=== PATIENT | male | born 1965 | race Caucasian/White ===

== ENCOUNTER 2017-04-09 09:22 | Emergency (ER) | payer BC ==
[~2017-04-09 09:22] MED LIST: ALPRAZOLAM PO; ASPIRIN PO; BENADRYL PO; CELEXA PO; FAMOTIDINE PO; GLUCOPHAGE XR500 MG PO; HCTZ PO; INDOMETHACIN PO; INDOMETHACIN75 MG PO; JANUMET; LIPITOR PO; LOPRESSOR PO; LORTAB 7.5-5001 TAB PO; MEDROL PO; METFORMIN PO; NORVASC10 MG PO; NOVOLOG100 U/ML SUBQ; PAXIL CR PO; PLAVIX PO; PROTONIX PO; ULORIC PO; WELCHOL625 MG PO; ZANTAC PO
[2017-04-18] MEDS ORDERED: METOPROLOL SUC200 MG PO (15:14)
[2017-04-18] MEDS ORDERED: AMLODIPINE BESY10 MG PO (15:14)
[2017-04-18] MEDS ORDERED: JANUMET 50-1,01 EACH (15:15)
[2017-04-18] MEDS ORDERED: CELEXA20 MG PO (15:16)
[2017-04-18] MEDS ORDERED: HEARTBURN RELI150 M1 PO (15:16)
[2017-04-18] MEDS ORDERED: LIPITOR20 MG PO (15:17)
[2017-04-18] MEDS ORDERED: ISOSORBIDE MONO60 M1 PO (15:19)
[2017-04-18] MEDS ORDERED: COATED ASPIRIN325 M1 PO (15:22)
== END 2017-04-09 11:24 | disposition home or self-care (01) ==
LOC: CED 09:22
DX: H66.93 Otitis media, unspecified, bilateral (principal); R42 Dizziness and giddiness; E78.5 Hyperlipidemia, unspecified; I10 Essential (primary) hypertension; Z88.0 Allergy status to penicillin; Z91.040 Latex allergy status; Z88.8 Allergy status to other drugs, medicaments and biological substances
CPT/HCPCS: 99284

== ENCOUNTER → 2017-04-24 | Day surgery (SDC) | payer BC ==
[~2017-04-24] MED LIST changes: +AMLODIPINE BESY10 MG PO; +CELEXA20 MG PO; +COATED ASPIRIN325 M1 PO; +HEARTBURN RELI150 M1 PO; +ISOSORBIDE MONO60 M1 PO; +JANUMET 50-1,01 EACH; +LIPITOR20 MG PO; +METOPROLOL SUC200 MG PO
--- NOTE | ~2017-04-24 | OR ---
Unit #: [id number] #: [id number] Patient: KIKA ROLDAN [id number] [address] [place], [place] [address] [id number] MR#: [id number] NAME: KIKA ROLDAN ROOM: Date of Procedure: 04/24/2017 Admission Date: 04/24/2017 Surgeon: Waqar Moore M.D. : 1965 Attending Physician: Waqar Moore M.D. Primary Care Physician: Carl Howell M.D. OPERATIVE REPORT PRIMARY CARE PHYSICIAN Carl Howell M.D. PREOPERATIVE DIAGNOSIS Colorectal cancer screening in an average-risk patient. PROCEDURE PERFORMED Colonoscopy up to cecum with excellent preparation and good visualization. POSTOPERATIVE DIAGNOSES Completely normal examination up to cecum. The quality of the prep was excellent. The patient did not have any polyps nor any diverticula or hemorrhoids. RECOMMENDATIONS Repeat colonoscopy in 10 years. SEDATION USED MAC. DESCRIPTION OF PROCEDURE Following detailed explanation of the potential risks and complications of a colonoscopy, namely perforation, bleeding, and complications related to sedation, the patient was brought to GI lab and laid in the left lateral decubitus position. A digital rectal examination was performed, which was normal. Lubricated tip of the Olympus video colonoscope was inserted through the anus and advanced under direct vision. The scope was advanced and passed up to sigmoid into descending colon. No diverticula were noted in this area. The scope tip was then navigated all the way up to cecum with visualization of ileocecal valve and the appendiceal orifice. Preparation was excellent with good visualization and photodocumentation was obtained. Last several inches of the terminal ileum also visualized after intubation of the ileocecal valve and appeared normal. Successive segments of the colonic mucosa were examined upon withdrawal and appeared unremarkable. There being no polyps, mass lesions, AVMs, or diverticula. The patient did not have any hemorrhoids at anal verge. The scope was then withdrawn. The patient returned to the recovery area. He tolerated the procedure without any postprocedure complications. Dictated by... Waqar Moore M.D. Unit #: [id number] #: [id number] Patient: KIKA ROLDAN NESTOR/ovi TD: 04/24/2017 11:55 JOB #: [id number] OPERATIVE REPORT Page 1 of 1 X Waqar Moore MD PROCEDURE OPERATIVE NOTE
== END | disposition home or self-care (01) ==
LOC: COPS 08:30
DX: Z12.11 Encounter for screening for malignant neoplasm of colon (principal); I25.10 Atherosclerotic heart disease of native coronary artery without angina pectoris; K21.9 Gastro-esophageal reflux disease without esophagitis; E11.9 Type 2 diabetes mellitus without complications; Z86.73 Personal history of transient ischemic attack (TIA), and cerebral infarction without residual deficits; Z88.8 Allergy status to other drugs, medicaments and biological substances; Z79.82 Long term (current) use of aspirin; Z79.899 Other long term (current) drug therapy; Z91.040 Latex allergy status; Z95.5 Presence of coronary angioplasty implant and graft
CPT/HCPCS: 82947; J2250

== ENCOUNTER 2017-06-04 16:39 | Emergency (ER) | payer BC ==
--- NOTE | ~2017-06-04 | EKG ---
PATIENT: KIKA ROLDAN UNIT #: [id number] Ventricular Rate: 121 BPM Atrial Rate: 92 BPM QRS Duration: 76 ms Q-T Interval: 310 ms QTC Calculation(Bezet): 440 ms Calculated R [place]: 30 degrees Calculated T [place]: 23 degrees Diagnosis Line: Atrial fibrillation with rapid ventricular Diagnosis Line: response Diagnosis Line: Nonspecific ST abnormality , probably digitalis Diagnosis Line: effect Diagnosis Line: Abnormal ECG Diagnosis Line: When compared with ECG of 01-JUN-2010 09:08, Diagnosis Line: Atrial fibrillation has replaced Sinus rhythm Diagnosis Line: Non-specific change in ST segment in Inferior Diagnosis Line: leads Diagnosis Line: ST now depressed in Lateral leads Diagnosis Line: Confirmed by MEENAKSHI SUAREZ MD ([id number]) on Diagnosis Line: 06/07/2017 10:41:24 AM INTERPRETING MD: DANIELA BARTON
--- NOTE | ~2017-06-04 | CR72 ---
[facility]. [facility] A Service of [facility] RADIOLOGY TEXT RESULTS PATIENT: KIKA ROLDAN LOCATION: SED : [birth year] UNIT #: [id number] AGE: [address]: Joe Wick MD SEX: M ORDER DR: [id number] [place] [id number] E MR#: [id number] Acc #: [id number] NAME: KIKA ROLDAN : 1965 SEX: M STUDY DATE/TIME: 06/04/2017 16:55 UNIT: SED ROOM: STUDY DESCRIPTION: CR Chest Single View Portable Attending Physician: Joe Wick M.D. Ordering Physician: Joe Wick M.D. Primary Care Physician: Carl Howell M.D. MEDICAL IMAGING REPORT This report is preliminary unless electronic signature is present. EXAM Portable chest 06/04/2017 HISTORY Shortness of breath and racing heart beat. Patient feels about to pass out. Symptoms for 2 hours today. Benign essential hypertension. Smoking history. FINDINGS The heart is top normal in size. Lungs are clear. There are no pleural effusions. IMPRESSION No active pulmonary disease. Dictated by... John Guerrero M.D. THIS IS AN ELECTRONICALLY VERIFIED REPORT John Guerrero M.D. at 06/05/2017 7:25 AM MADDIE/akin TD: 06/05/2017 06:30 JOB #: [id number] MEDICAL IMAGING REPORT Page 1 of 1
[2017-06-04 17:08] LABS: BASOPHIL# 0.1 X10e3 (0-0.3); EOSINOPHIL# 0.2 X10e3 (0-0.7); EOSINOPHIL% 2.5 % (0.0-7.0); HEMATOCRIT 42.8 % (38.0-50.0); HEMOGLOBIN 15.1 gm/dL (13.0-16.0); LYMPHOCYTE# 2.1 X10e3 (1.0-3.5); LYMPHOCYTE% 31.3 % (17.0-45.0); MEAN CELL VOLUME 82.1 FL (83-96); MEAN CORPUSCULAR HEMOGLOBIN 28.9 PG (28-34); MEAN CORPUSCULAR HGB CONC 35.2 g/dL (30-36); MEAN PLATELET VOLUME 8.8 FL (6.5-11.5); MONOCYTE# 0.5 X10e3 (0-1.0); MONOCYTE% 6.8 % (3.0-12.0); NEUTROPHIL% 58.4 % (40-75); PLATELET COUNT 171 X10e3 (140-420); RED BLOOD COUNT 5.21 X10e (3.90-5.60); WHITE BLOOD COUNT 6.9 X10e3 (4.0-10.5)
[2017-06-04 17:12] LABS: POC - CKMB 1.2 ng/mL (0.0-7.9); POC - TROPONIN <0.05 ng/mL (<=0.05)
[2017-06-04 17:18] LABS: INR 1.1; PROTHROMBIN TIME (PATIENT) 12.1 SECONDS (9.5-12.4)
[2017-06-04 17:19] LABS: DIFF IND NO
[2017-06-04 17:25] LABS: PARTIAL THROMBOPLASTIN TIME 24.1 SECONDS (25.6-38.1)
[2017-06-04 17:27] LABS: ALBUMIN SERUM 4.7 g/dL (3.5-5.0); BILIRUBIN, DIRECT 0.1 mg/dL (0.0-0.2); BILIRUBIN,INDIRECT 0.5 mg/dL (0.0-0.9); BILIRUBIN,TOTAL 0.6 mg/dL (0.2-2.0); BUN/CREATININE RATIO 14.44; CALCIUM SERUM 9.5 mg/dL (8.4-10.2); CREATININE SERUM 0.9 mg/dL (0.6-1.4); GLOM FILT RATE Estimated 97.9 mL/min (>60); MAGNESIUM 1.7 mg/dL (1.6-3.0); POTASSIUM 3.4 mmol/L (3.5-5.1); PROTEIN TOTAL SERUM 8.3 g/dL (6.0-8.3)
== END 2017-06-04 19:40 ==
LOC: SED 16:39
PROVIDERS: Emergency Medicine
DX: I48.91 Unspecified atrial fibrillation (principal); E10.9 Type 1 diabetes mellitus without complications; K21.9 Gastro-esophageal reflux disease without esophagitis; F32.9 Major depressive disorder, single episode, unspecified; I25.10 Atherosclerotic heart disease of native coronary artery without angina pectoris; F17.210 Nicotine dependence, cigarettes, uncomplicated; Z88.0 Allergy status to penicillin; Z91.040 Latex allergy status; Z88.8 Allergy status to other drugs, medicaments and biological substances; Z79.899 Other long term (current) drug therapy
CPT/HCPCS: 36415; 71010; 80048; 80076; 82553; 82947; 83735; 83874; 84443; 84484; 85025; 85610; 85730; 93005; 96361; 96372; 96374; 99285; J1650